=== PATIENT | female | born 1965 | race Caucasian/White ===

== ENCOUNTER 2018-08-20 13:00 | Outpatient (RCR) | payer OTHER | END 2018-08-20 14:00 | disposition home or self-care (01) | DRG 558 | LOC: PT 13:00 | PROVIDERS: ATTEND Orthopaedic Surgery | DX: M75.01 Adhesive capsulitis of right shoulder (principal) ==

== ENCOUNTER 2018-09-01 13:00 | Outpatient (RCR) | payer OTHER | END 2018-09-01 14:00 | disposition home or self-care (01) | DRG 558 | LOC: PT 13:00 | PROVIDERS: ATTEND Orthopaedic Surgery | DX: M75.01 Adhesive capsulitis of right shoulder (principal) ==